=== PATIENT | male | born 1950 | race African-American/Black ===

== ENCOUNTER 2017-12-23 09:39 | Inpatient (IN) ==
[2017-12-23] MEDS ORDERED: ONDANSETRON 4 MG/2 ML VIAL IV STA (10:01)
[2017-12-23] MEDS ORDERED: PANTOPRAZOLE 40 MG VIAL IV STA (10:01)
[2017-12-23] MEDS ORDERED: LEVOFLOXACIN INJ 750 MG in PREMIX 1 EACH IV STA (10:01)
[2017-12-23] MEDS ORDERED: DICYCLOMINE 20 MG/2 ML AMP IM ONE ×2 (10:01→10:27)
[2017-12-23] MEDS ORDERED: ONDANSETRON 4 MG/2 ML VIAL ONE (10:27)
[2017-12-23] MEDS ORDERED: PANTOPRAZOLE 40 MG VIAL IV ONE (10:27)
[2017-12-23 10:40] LABS: Basophils % 0.2 % (0.0-0.8); Eosinophils % 0.1 % (0.00-10.9); Hematocrit 41.1 VOL% (42.0-52.0); Hemoglobin 13.3 GM/DL (14.0-18.0); Immature Granulocytes % 1.1 %; Immature Granulocytes Absolute 0.17 #; Lymphocytes # 0.4 10*3/uL (1.4-4.0); Lymphocytes % 2.2 % (21.2-54.2); Mean Corpuscular HGB Conc 32.4 GM/DL (32-36); Mean Corpuscular Hemoglobin 28 PG (27-34); Mean Corpuscular Volume 85.6 FL (87-102); Mean Platelet Volume 11.2 FL (9.6-12.0); Monocytes # 0.9 10*3/uL (0.11-0.8); Monocytes % 5.8 % (1.7-12.7); Neutrophils # 14.3 10*3/uL (1.4-7.4); Neutrophils % 90.6 % (38.7-73.9); Platelet Count 210 T/CUMM (130-400); Red Cell Distribution Width 13.1 % (9.3-17.3); White Blood Count 15.7 T/CUMM (4-12)
[2017-12-23 10:46] LABS: Apearance,Urine CLEAR (Clear); Bilirubin,Urine Negative (Negative); Blood, Urine Small mg/dL (Negative); Glucose,Urine (UA) Negative (Negative); Ketones,Urine Negative (Negative); Mucus,Urine Occasional /LPF (Occasional); Nitrite,Urine Negative (Negative); Protein,Urine Negative; RBC,Urine 6 /HPF (0-4); Squamous Epithelial Cell,Urine Occasional /HPF (0-10); Urine Color Amber (Yellow); Urine Specific Gravity 1.015 (1.001-1.035); WBC,Urine 1 /HPF (0-6)
[2017-12-23 11:16] LABS: Lactic Acid 1.5 MMOL/L (0.4-2.0)
[2017-12-23 11:26] LABS: Alanine Aminotransferase 340 U/L (16-61); Albumin 3.9 G/DL (3.4-5.0); Alkaline Phosphatase 146 U/L (45-117); Amylase 36 U/L (25-115); Aspartate Amino Transferase 268 U/L (0-37); Blood Urea Nitrogen 19 MG/DL (7-18); Calcium 9.5 MG/DL (8.5-10.1); Glucose 118 MG/DL (74-106); Osmolality,Calculated 272.1 MOS/KG (273-304); Sodium 135 MMOL/L (136-145); Total Protein 7.5 G/DL (6.4-8.3); Troponin I Only < 0.015 NG/ML (0.00-0.045)
[2017-12-23 11:35] LABS: Band Neutrophils 13 % (0-10); Hypochromasia 2+; Lymphocytes 3 % (20-55); Microcytosis 1+; Platelet Estimate Adequate; Segmented Neutrophils 80 % (50-85); Total Cells Counted 100
[2017-12-23] MEDS ORDERED: LEVOFLOXACIN INJ 150 ML IV ONE (13:01)
[2017-12-23] MEDS ORDERED: ONDANSETRON 4 MG/2 ML VIAL IV PRN (13:41)
[2017-12-23] MEDS: SODIUM CHLORIDE 0.9% 1,000 ML IV SCH (15:40)
[2017-12-23] MEDS: DICYCLOMINE 10 MG CAPSULE PO SCH (20:06)
[2017-12-24] MEDS: SODIUM CHLORIDE 0.9% 1,000 ML IV SCH ×2 (06:07→20:26)
[2017-12-24 06:47] LABS: Basophils % 0.3 % (0.0-0.8); Eosinophils # 0.1 10*3/uL (0.0-0.87); Eosinophils % 0.5 % (0.00-10.9); Hematocrit 37.5 VOL% (42.0-52.0); Hemoglobin 12.1 GM/DL (14.0-18.0); Immature Granulocytes % 0.7 %; Immature Granulocytes Absolute 0.09 #; Lymphocytes # 0.8 10*3/uL (1.4-4.0); Lymphocytes % 6.1 % (21.2-54.2); Mean Corpuscular HGB Conc 32.3 GM/DL (32-36); Mean Corpuscular Hemoglobin 28 PG (27-34); Mean Corpuscular Volume 85.2 FL (87-102); Mean Platelet Volume 11.9 FL (9.6-12.0); Monocytes % 7.9 % (1.7-12.7); Neutrophils % 84.5 % (38.7-73.9); Platelet Count 171 T/CUMM (130-400); Red Cell Distribution Width 13.2 % (9.3-17.3)
[2017-12-24 07:15] LABS: Albumin 3.3 G/DL (3.4-5.0); Bilirubin,Direct 4.24 MG/DL (0.0-0.20); Bilirubin,Indirect 1.6 MG/DL (0.0-1.0); Bilirubin,Total 5.8 MG/DL (0.2-1.0); Total Protein 6.6 G/DL (6.4-8.3)
[2017-12-24 07:18] LABS: Calcium 8.5 MG/DL (8.5-10.1); Osmolality,Calculated 274.7 MOS/KG (273-304); Potassium 3.3 MMOL/L (3.5-5.1); Risk Ratio 2.71; VLDL CHOLESTEROL 17.2 MG/DL
[2017-12-24 07:37] LABS: Band Neutrophils 4 % (0-10); Eosinophils 2 % (0-10); Hypochromasia Slight; Lymphocytes 2 % (20-55); Platelet Estimate Adequate; Segmented Neutrophils 84 % (50-85); Total Cells Counted 100
[2017-12-24] MEDS: DICYCLOMINE 10 MG CAPSULE PO SCH ×2 (08:49→20:26)
[2017-12-24] MEDS ORDERED: PANTOPRAZOLE 40 MG VIAL IV SCH (09:00)
[2017-12-24 11:23] LABS: % Iron Saturation 4.5 % (18-50)
[2017-12-24] MEDS: PANTOPRAZOLE 40 MG TABLET PO SCH (11:53)
[2017-12-24 13:22] LABS: Hepatitis A Ab IgM Quant 0.12 Index; Hepatitis A Ab IgM Result Negative (Negative); Hepatitis B Core IgM Quant 0.17 Index; Hepatitis B Core IgM Result Negative (Negative); Hepatitis B Surface Ag Quant < 0.10 Index; Hepatitis B Surface Ag Result Negative (Negative); Hepatitis C Virus Ab Result Negative (Negative)
[2017-12-24] MEDS: LEVOFLOXACIN INJ 750 MG in PREMIX 1 EACH IV SCH (14:06)
[2017-12-24] MEDS ORDERED: POTASSIUM CHLORIDE 20 MEQ TABLET PO ONE (14:26)
[2017-12-25 07:09] LABS: Calcium 8.4 MG/DL (8.5-10.1); Osmolality,Calculated 279.4 MOS/KG (273-304); Potassium 3.4 MMOL/L (3.5-5.1)
[2017-12-25 07:25] LABS: Bilirubin,Direct 2.23 MG/DL (0.0-0.20); Bilirubin,Indirect 1.4 MG/DL (0.0-1.0); Bilirubin,Total 3.6 MG/DL (0.2-1.0); Total Protein 6.5 G/DL (6.4-8.3)
[2017-12-25] MEDS ORDERED: EPINEPHrine 1 MG/ML VIAL ONE (08:58)
[2017-12-25] MEDS ORDERED: LIDOCAINE 100 MG/5 ML SYRINGE ONE (09:00)
[2017-12-25] MEDS ORDERED: PROPOFOL 200 MG/20 ML VIAL IV ONE (09:00)
[2017-12-25] MEDS: SODIUM CHLORIDE 0.9% 1,000 ML IV SCH ×2 (14:19→23:48)
[2017-12-25] MEDS: PANTOPRAZOLE 40 MG TABLET PO SCH ×2 (14:20→20:16)
[2017-12-25] MEDS: LEVOFLOXACIN INJ 750 MG in PREMIX 1 EACH IV SCH (14:20)
[2017-12-25] MEDS: DICYCLOMINE 10 MG CAPSULE PO SCH ×2 (14:20→20:16)
[2017-12-25] MEDS ORDERED: LABETALOL 200 MG TABLET PO SCH (21:00)
[2017-12-26 07:04] LABS: Calcium 8.3 MG/DL (8.5-10.1); Osmolality,Calculated 280.3 MOS/KG (273-304); Potassium 3.6 MMOL/L (3.5-5.1)
[2017-12-26 07:16] LABS: Albumin 2.8 G/DL (3.4-5.0); Bilirubin,Direct 1.08 MG/DL (0.0-0.20); Bilirubin,Indirect 0.7 MG/DL (0.0-1.0); Bilirubin,Total 1.8 MG/DL (0.2-1.0); Total Protein 6.1 G/DL (6.4-8.3)
[2017-12-26] MEDS: amLODIPine 10 MG TABLET PO SCH (08:05)
[2017-12-26] MEDS: PANTOPRAZOLE 40 MG TABLET PO SCH ×2 (08:05→21:49)
[2017-12-26] MEDS: DICYCLOMINE 10 MG CAPSULE PO SCH ×2 (08:05→21:49)
[2017-12-26] MEDS: SODIUM CHLORIDE 0.9% 1,000 ML IV SCH (11:57)
[2017-12-26] MEDS: LEVOFLOXACIN INJ 750 MG in PREMIX 1 EACH IV SCH (11:59)
[2017-12-26] MEDS: BISACODYL 5 MG TABLET PO SCH ×2 (16:08→23:30)
[2017-12-26] MEDS ORDERED: POLYETHYLENE GLYCOL POWDER 255 GM BOTTLE PO ONE (18:00)
[2017-12-26] MEDS ORDERED: MAGNESIUM CITRATE 300 ML BOTTLE PO ONE (21:00)
[2017-12-27] MEDS: SODIUM CHLORIDE 0.9% 1,000 ML IV SCH ×2 (02:38→14:18)
[2017-12-27 06:49] LABS: Basophils # 0.1 10*3/uL (0.0-0.2); Eosinophils # 0.3 10*3/uL (0.0-0.87); Eosinophils % 5.4 % (0.00-10.9); Hematocrit 40.1 VOL% (42.0-52.0); Hemoglobin 12.9 GM/DL (14.0-18.0); Immature Granulocytes % 0.7 %; Immature Granulocytes Absolute 0.04 #; Lymphocytes # 1.7 10*3/uL (1.4-4.0); Mean Corpuscular HGB Conc 32.2 GM/DL (32-36); Mean Corpuscular Hemoglobin 27 PG (27-34); Mean Corpuscular Volume 84.8 FL (87-102); Mean Platelet Volume 11.6 FL (9.6-12.0); Monocytes # 0.6 10*3/uL (0.11-0.8); Monocytes % 10.4 % (1.7-12.7); Neutrophils # 3.3 10*3/uL (1.4-7.4); Neutrophils % 54.5 % (38.7-73.9); Platelet Count 209 T/CUMM (130-400); Red Blood Count 4.73 MC/CUMM (3.8-5.5); Red Cell Distribution Width 12.8 % (9.3-17.3)
[2017-12-27 07:22] LABS: Albumin 3.7 G/DL (3.4-5.0); Bilirubin,Total 1.7 MG/DL (0.2-1.0); Calcium 8.9 MG/DL (8.5-10.1); Osmolality,Calculated 275.5 MOS/KG (273-304); Potassium 3.5 MMOL/L (3.5-5.1); Total Protein 7.5 G/DL (6.4-8.3)
[2017-12-27] MEDS: PANTOPRAZOLE 40 MG TABLET PO SCH (09:02)
[2017-12-27] MEDS: amLODIPine 10 MG TABLET PO SCH (09:02)
[2017-12-27] MEDS: DICYCLOMINE 10 MG CAPSULE PO SCH (09:02)
[2017-12-27] MEDS: BISACODYL 5 MG TABLET PO SCH (09:37)
[2017-12-27 11:29] VITALS: BP 138/72
[2017-12-27] MEDS: LEVOFLOXACIN INJ 750 MG in PREMIX 1 EACH IV SCH (12:19)
[2017-12-27] MEDS ORDERED: LIDOCAINE 1% 5 ML VIAL ONE (15:27)
[2017-12-27] MEDS ORDERED: PROPOFOL 200 MG/20 ML VIAL IV ONE (15:27)
== END 2017-12-27 15:30 | disposition home or self-care (01) | DRG 392 ==
LOC: N.ED 09:39 → N.EDINP 13:39 → SUATTDRO 13:39 → N.5E 14:50
PROVIDERS: ADMIT Internal Medicine Geriatric Medicine; ATTEND Internal Medicine